=== PATIENT | female | born 1955 | race African-American/Black ===

== ENCOUNTER 2016-09-13 07:10 | Emergency (ER) | payer OTHER ==
[~2016-09-13] VITALS: Ht 160 cm; Wt 70.0 kg
[~2016-09-13 07:10] MED LIST: CEPH500C3 PO; Z.0.NO CURRENT MEDS
[2016-09-13 07:12] VITALS: BP 146/89; PULSE 89; RESP 15; TEMP 98.4; O2SAT 98
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
[2016-09-13] MEDS ORDERED: CYCLOBENZAPRINE HCL 10 MG TAB PO ONE (07:30)
[2016-09-13] MEDS ORDERED: IBUPROFEN 800 MG TAB PO ONE (07:30)
[2016-09-13] MEDS ORDERED: IBUP-232 PO (07:34)
[2016-09-13] MEDS ORDERED: CYCL5TAB PO (07:34)
== END 2016-09-13 08:43 | disposition home or self-care (01) ==
LOC: NEPD 07:10
DX: M54.5 Low back pain (principal); V89.2XXA Person injured in unspecified motor-vehicle accident, traffic, initial encounter
CPT/HCPCS: 99283